=== PATIENT | female | born 1965 | race Caucasian/White ===

== ENCOUNTER 2018-08-28 09:47 | Outpatient (CLI) | payer OTHER, SELFPAY ==
[2018-08-29 10:24] LABS: Hepatitis C Ab w Rflx HCV PCR Negative (NEGAT)
== END 2018-08-28 10:07 ==
PROVIDERS: PCP Family Medicine; Visit Provider Family Medicine
DX: R89.9 Unspecified abnormal finding in specimens from other organs, systems and tissues (principal)
CPT/HCPCS: 36415; 86803

== ENCOUNTER 2018-10-15 11:29 | Outpatient (REF) | payer OTHER, SELFPAY ==
[2018-10-15 22:10] LABS: HGB 15.3 g/dL (12.0-15.5); Mean Corp. HGB Concentration 33.3 g/dL (32.0-36.0); Mean Corpuscular Hemoglobin 29.4 pg (27.0-33.0); Mean Corpuscular Volume 88.5 fL (80-95); Mean Platelet Volume 11.6 fL (8.0-11.0); Platelet Count 177 x1000/uL (130-400); RBC Distribution Width 12.4 % (11.7-14.6); White Blood Cell Count 5.09 k/cumm (4.4-10.8)
[2018-10-15 22:45] LABS: ALT 95 U/L (12-78); AST 42 U/L (15-37); Albumin 3.8 g/dL (3.4-5.0); Alkaline Phosphatase 103 U/L (46-116); Anion Gap 9.5 mmol/L (3-11); BUN 12 mg/dL (7-18); Bilirubin, Total 0.6 mg/dL (0.2-1.0); CO2 27.5 mmol/L (21.0-32.0); CREATININE 0.72 mg/dL (0.55-1.02); Calcium 8.9 mg/dL (8.5-10.1); Chloride 104 mmol/L (98-107); Cholesterol 223 mg/dL (50-200); Glucose 85 mg/dL (70-100); Sodium 141 mmol/L (136-145); TSH (W/Ref FT4) 2.14 uIU/mL (0.36-3.74); Triglyceride 92 mg/dL (30-150)
[2018-10-15 23:07] LABS: Calculated LDL 159 mg/dL; HDL Cholesterol 46 mg/dL (40-60)
== END 2018-10-15 11:49 ==
LOC: NCHCN 11:29
PROVIDERS: PCP Family Medicine; Visit Provider Family Medicine
DX: R10.11 Right upper quadrant pain (principal); R53.83 Other fatigue; Z00.00 Encounter for general adult medical examination without abnormal findings
CPT/HCPCS: 80053; 80061; 83721; 85027; 84443

== ENCOUNTER 2018-10-17 00:41 | Outpatient (CLI) | payer OTHER, SELFPAY ==
--- NOTE | 2018-10-17 08:20 | DI.US_ITS ---
SYMPTOM/DIAGNOSIS: RUQ PAIN, R10.11 ABDOMINAL ULTRASOUND: The aorta and vena cava are unremarkable. Increased echogenicity in the liver is noted consistent with fatty infiltration. Multiple gallstones are noted in the gallbladder. The common duct caliber is 6 mm which is at the top limits of normal in size. The pancreas is unremarkable. The spleen is unremarkable. The kidneys are unremarkable. There is no evidence of free fluid in the pelvis. SUMMARY: A fatty liver is demonstrated in this patient with cholelithiasis. There is no evidence of acute cholecystitis. There is no evidence of biliary obstruction.
== END 2018-10-17 01:01 ==
PROVIDERS: PCP Family Medicine; Visit Provider Family Medicine
DX: R10.11 Right upper quadrant pain (principal); K76.0 Fatty (change of) liver, not elsewhere classified; K80.20 Calculus of gallbladder without cholecystitis without obstruction
CPT/HCPCS: 76700

== ENCOUNTER 2018-11-19 06:12 | Day surgery (SDC) | payer OTHER, SELFPAY ==
[2018-11-19] VITALS (8 sets, daily range): BP systolic 130–168; BP diastolic 83–97; PULSE 58–76; RESP 9–19; TEMP 26.8–36.8; O2SAT 96–98
[2018-11-19] MEDS: Lactated Ringers 1,000 ML 80 ML IV (06:53)
[2018-11-19] MEDS: ceFAZolin 2 GM/50 ML BAG IVPB (07:27)
--- NOTE | 2018-11-19 08:06 | GB_PTH ---
PATIENT: Ariella Farnsworth LOC: [facility] U#:[id number] AGE/SX: 53/F ROOM: RE11/19/[address]: Zuleika Rivera MD : 1965 BED: DIS: 11/19/2018 SPEC #: [id number] RECD: 11/19/18 11:45 STATUS: WANDA VERA #: [id number] YAMILKA: 11/19/18 08:[address]: Zuleika Rivera DEPT: Surgical Specimen RECD BY: Estefania Isidro ENTERED: 11/19/18 11:46 SP TYPE: GB OTHR DR: Jessi Gonzalez V Tissues: 1 - LIVER BIOPSY(NEEDLE/WEDGE) 2 - GALLBLADDER Procedures: SPECIAL STAIN 2 GROSS AND MICRO LEVEL 5 GROSS AND MICRO LEVEL 3 Comments: [id number]
[2018-11-19] MEDS: Bupivacaine 0.5% Pres-Free 30 ML VIAL (08:18)
--- NOTE | 2018-11-19 08:25 | PDOC.DSDIS_ITS ---
Discharge Plan Disposition Patient Disposition: HOME Condition: Good Discharge Details Reason For Visit: Laparoscopic cholecystectomy Attending Provider: Zuleika Rivera Primary Care Provider: Jessi Gonzalez V Home Meds and New Rx's Prescriptions: New hydrocodone-acetaminophen 5-325 mg tablet 1 tab PO Q6H PRN (Reason: pain) Qty: 15 RF: 0 Continued glucosamine sulfate [Glucosamine] 500 mg tablet 500 mg PO DAILY RF: 0 citalopram 10 MG tablet 10 mg PO DAILY RF: 0 Discharge Instructions Additional Instructions: The top bandage can be removed tomorrow. The steri strips will usually stick for about a week. When the edges start to curl up, they can be removed. It is okay to shower tomorrow, the water can run over the steri strips Do not swim or soak in a tub for two weeks Call for any concerns including fever, increased pain, vomiting, incision redness or drainage. Do not lift more than 15 pounds for two weeks. Walking and stairs are fine. Do not drive if on narcotic pain meds or if limited by pain. May use Tylenol alternating with ibuprofen for pain control. Ice is also an option. The maximum dose for Tylenol is 4000 mg/day. May use ibuprofen 800 mg every 8 hours as needed. If concerned about constipation, you may use a stool softener or milk of magnesia. Referrals: Zuleika Rivera MD [ [facility] STAFF PHYSICIAN] - (Return for postop visit in 10-14 days) Activity:: Do not lift more than 15 pounds for two weeks Remove Dressings/Wound Care:: 24 hours Shower/Bathe:: 24 hours Diet:: Low fat for two weeks Discharge Orders Discharge Orders: Discharge Order (Routine); Ordered 11/19/18 Ordered By: Zuleika Rivera DS: Diagnosis Discharge Diagnosis (1) Cholelithiasis: Status: Acute (2) History of laparoscopic cholecystectomy:
[2018-11-19] MEDS: fentaNYL 100 MCG/2 ML VIAL IVP ×2 (08:47→09:03)
[2018-11-19] MEDS: HYDROcodone 5/Acetaminophen 325 TAB PO (10:00)
--- NOTE | 2018-11-19 12:39 | ROE_ITS ---
DATE OF PROCEDURE: November 19, 2018 PREOPERATIVE DIAGNOSIS: Symptomatic cholelithiasis. POSTOPERATIVE DIAGNOSIS: Symptomatic cholelithiasis. PROCEDURE: 1. Laparoscopic cholecystectomy. 2. Liver biopsy. SURGEON: Zuleika Rivera M.D. [employer] MANAGER: Jagdish Black ANESTHESIA: Local and general. INDICATIONS: This is a 53-year-old woman who complains of right upper quadrant pain that radiates to her back. This occurs after a meal and lasts for about two hours. She had an ultrasound that show ed gallstones and fatty liver change. She has a mildly elevated AST and ALT. PROCEDURE: She was placed supine on the operating table and under general anesthetic was prepped and draped sterilely. A 5 mm incision was made to the left of the umbilicus and the abdomen entered und er direct visualization. A CO2 pneumoperitoneum was begun and she was placed in reverse Trendelenbur g position. The epigastric and two lateral ports were placed under direct visualization after inject ing local anesthetic. Her gallbladder did not appear acutely inflamed. It was fairly mobile on a pr ominent mesentery. The liver itself appeared slightly fibrotic. The gallbladder fundus was pulled u p over the liver and the infundibulum retracted laterally. The peritoneum overlying the triangle of Calot was dissected free with hook cautery to expose the cystic duct and artery. These were both vis ualized going directly onto the gallbladder. The duct was palpated with no stones felt within it. T he cystic duct was not dilated. The common bile duct was visualized and carefully avoided. The cyst ic duct was clipped twice distally and once proximally and divided. The artery was clipped twice pro ximally and once distally and divided. The gallbladder was then dissected off the liver bed with tobias k cautery with a few vessels within the gallbladder fossa being clipped. Once the gallbladder was re moved, I removed a small portion of the edge of the liver near the gallbladder fossa for a biopsy, gi chacha her LFT changes. The biopsy site was cauterized with good hemostasis. Inspection of the operati ve site revealed no bleeding or bile leak. The gallbladder was placed in an Endo-Catch bag and remov ed through the epigastric incision. There were several moderate-sized gallstones which required that the incision be extended slightly. The ports were removed with no evidence of bleeding and the CO2 released. The fascia at the epigastric incision was closed with a [id number] #0 Vicryl stitch a nd then the skin at all port sites closed with a running #4-0 Monocryl subcuticular stitch. She tole rated the procedure well and was stable to recovery. cc: Jessi Gonzalez M.D.
== END 2018-11-19 11:02 | disposition home or self-care (01) ==
PROVIDERS: PCP Family Medicine; Visit Provider Surgery
PROC: 0FT44ZZ Resection of Gallbladder, Percutaneous Endoscopic Approach (ICD-10-PCS; CPT 47562; principal; 2018-11-19 07:30)
DX: K80.12 Calculus of gallbladder with acute and chronic cholecystitis without obstruction (principal); K76.0 Fatty (change of) liver, not elsewhere classified; I10 Essential (primary) hypertension; F32.9 Major depressive disorder, single episode, unspecified
CPT/HCPCS: 49321; 47562; 88304; 88307; 88313; J0690; J1100; J1885; J2250; J2405; J3010

== ENCOUNTER 2018-12-30 07:43 | Outpatient (CLI) | payer OTHER, SELFPAY ==
[2018-12-30 08:29] LABS: Absolute Basophil Count 0.04 k/cumm (0.0-0.2); Absolute Eosinophil Count 0.19 k/cumm (0.0-0.7); Absolute Lymphocyte Count 2.07 k/cumm (1.2-3.4); Absolute Monocyte Count 0.36 k/cumm (0.11-0.7); Absolute Neutrophil Count 3.47 k/cumm (1.2-6.7); Basophils % 0.7; Eosinophils % 3.1; HCT 41.9 % (36.0-46.0); HGB 14.2 g/dL (12.0-15.5); Lymphocytes % 33.8; Mean Corp. HGB Concentration 33.9 g/dL (32.0-36.0); Mean Corpuscular Hemoglobin 30.1 pg (27.0-33.0); Mean Platelet Volume 10.2 fL (8.0-11.0); Monocytes % 5.9; Neutrophils % 56.5; Platelet Count 191 x1000/uL (130-400); RBC 4.71 m/cumm (4.00-5.20); RBC Distribution Width 13.2 % (11.7-14.6); White Blood Cell Count 6.13 k/cumm (4.4-10.8)
[2018-12-30 09:18] LABS: Iron 121 ug/dL (50-175); Total Iron Binding Capacity 278 ug/dL (250-450); Transferrin Sat 44 % (15-50)
[2018-12-30 09:30] LABS: ALT 38 U/L (14-59); AST 25 U/L (15-37); Albumin 3.6 g/dL (3.4-5.0); Alkaline Phosphatase 111 U/L (46-116); Anion Gap 6.8 mmol/L (3-11); BUN 16 mg/dL (7-18); Bilirubin, Total 0.8 mg/dL (0.2-1.0); CO2 33.2 mmol/L (21.0-32.0); CREATININE 0.78 mg/dL (0.55-1.02); Calcium 8.9 mg/dL (8.5-10.1); Chloride 104 mmol/L (98-107); Ferritin 71 ng/mL (8-388); Glucose 100 mg/dL (70-100); Potassium 4.3 mmol/L (3.5-5.1); Sodium 144 mmol/L (136-145); Total Protein 7.1 g/dL (6.4-8.2)
[2018-12-31 09:21] LABS: IgG 1206 mg/dL (610-1616); IgM 142 mg/dL (35-242)
[2018-12-31 10:27] LABS: HBs Antibody, Quant <3.1 mIU/mL; Hepatitis B Surface Ab Negative
[2018-12-31 10:32] LABS: Hep A Total Ab w Rflx IgM Negative (NEGAT); Hepatitis C Ab w Rflx HCV PCR Negative (NEGAT)
[2018-12-31 11:13] LABS: Hepatitis Be Antigen Negative (Negative)
[2018-12-31 13:43] LABS: ANA Interpretation Positive (NEGAT); ANA Titer Pattern SEE COMMENTS
[2018-12-31 16:59] LABS: Smooth Muscle Ab Screen Negative (Negative)
[2019-01-01 15:40] LABS: Mitochondrial Ab, M2 <0.1 U
== END 2018-12-30 08:03 ==
PROVIDERS: PCP Family Medicine; Visit Provider Physician Assistant Medical
DX: K76.0 Fatty (change of) liver, not elsewhere classified (principal); R94.5 Abnormal results of liver function studies
CPT/HCPCS: 36415; 80053; 82784; 83516; 86706; 86709; 86803; 82728; 83540; 83550; 85025; 86038; 86255; 86704; 87350

== ENCOUNTER 2019-01-17 11:25 | Outpatient (REF) | payer OTHER, SELFPAY ==
--- NOTE | 2019-01-17 11:15 | PAPFT_PTH ---
PATIENT: Ariella Farnsworth LOC: [facility] U#:[id number] AGE/SX: 53/F ROOM: RE01/17/[address]: GRIFFIN Garcia : 1965 BED: DIS: 01/17/2019 SPEC #: [id number] RECD: 01/17/19 13:06 STATUS: WANDA VERA #: [id number] YAMILKA: 01/17/19 11:[address]: Lina Gamboa DEPT: [facility] Cytology RECD BY: Estefania Isidro ENTERED: 01/17/19 13:07 SP TYPE: PAPFT OTHR DR: Jessi Gonzalez V Tissues: 1 - CX/ENDOCX FOR PAP SMEARS Procedures: PAP THIN PREP/UVM Screening HPV DNA PROBE Comments: [id number]
== END 2019-01-17 11:45 ==
LOC: LBN 11:25
PROVIDERS: PCP Family Medicine; Visit Provider Nurse Practitioner Family
DX: Z12.4 Encounter for screening for malignant neoplasm of cervix (principal); Z11.51 Encounter for screening for human papillomavirus (HPV)
CPT/HCPCS: 88142; 87624

== ENCOUNTER 2019-02-03 01:20 | Outpatient (CLI) | payer OTHER, SELFPAY ==
--- NOTE | 2019-02-03 09:50 | DI.MAMMO_ITS ---
EXAM: MG MAMMO SCREENING CLINICAL HISTORY: screening, Z12.39 TECHNIQUE: Mammograms were interpreted according to the usual protocol including computer analysis w Factor 14 CAD system, tomosynthesis and C-view imaging. COMPARISON: [id number] FINDINGS: The breasts are composed of heterogeneously dense tissue, which may obscure small masses, breast dens ity category C. There are no dominant masses or microcalcifications. There has been no significant i nterval change when compared with the prior images. IMPRESSION: Category 1, negative mammogram. Yearly screening mammography is recommended. BI-RADS Cat 1 - Negative Breast Density - Category C - Heterogeneously dense
== END 2019-02-03 01:40 ==
PROVIDERS: PCP Family Medicine; Visit Provider Nurse Practitioner Family
DX: Z12.31 Encounter for screening mammogram for malignant neoplasm of breast (principal)
CPT/HCPCS: 77063; 77067

== ENCOUNTER 2019-10-31 12:42 | Outpatient (REF) | payer OTHER, SELFPAY ==
[2019-10-31 15:20] LABS: Bilirubin Negative (Negative); Blood Trace-intact (Negative); Clarity Clear (Clear); Glucose Negative (Negative); Ketones Negative (Negative); Leukocyte Esterase Trace (Negative); Nitrite Negative (Negative); Specific Gravity >= 1.030 (1.005-1.025); Urobilinogen 0.2 EU/dL (Up TO 0.2); pH 6.5 (5-8)
[2019-10-31 15:30] LABS: Bacteria Few HPF (Negative); Epithelial Cells Few HPF (Negative); Other Cells Few Renal (Negative); WBC >50 HPF (0-5)
[2019-10-31 15:31] LABS: C & S Indicated? Yes; Casts Negative LPF (Negative); Crystals Negative HPF (Negative); Mucus Trace (Negative)
== END 2019-10-31 13:02 ==
LOC: LBN 12:42
PROVIDERS: PCP Family Medicine; Visit Provider Obstetrics & Gynecology
DX: R30.0 Dysuria (principal)
CPT/HCPCS: 87077; 81003; 81015; 87086; 87186

== ENCOUNTER 2019-12-09 13:17 | Outpatient (CLI) | payer OTHER, SELFPAY ==
--- NOTE | 2019-12-09 13:00 | DI.RAD_ITS ---
EXAM: XR SHOULDER RT COMPLETE 2+V CLINICAL HISTORY: SHOULDER PAIN. TECHNIQUE: 2D digital imaging was performed. COMPARISON: No exams were available for comparison FINDINGS: BONES: No acute fracture is present. No bony destructive lesion is seen. JOINTS: Mild degenerative changes are seen at the acromioclavicular joint. The glenohumeral joint is well maintained. SOFT TISSUE: Normal. IMPRESSION: Mild degenerative changes of the right shoulder. DATA REPOSITORY: RADIATION DOSE DELIVERED:
== END 2019-12-09 13:37 ==
PROVIDERS: PCP Family Medicine; Referring Provider Family Medicine; Visit Provider Student in an Organized Health Care Education/Training Program
DX: M19.011 Primary osteoarthritis, right shoulder (principal)
CPT/HCPCS: 73030

== ENCOUNTER 2020-12-21 01:06 | Outpatient (CLI) | payer OTHER, SELFPAY ==
--- NOTE | 2020-12-21 08:15 | DI.MAMMO_ITS ---
Exam(s) MAMMO SCREENING EXAM: MAMMO SCREENING CLINICAL HISTORY: screening,Z12.39 TECHNIQUE: Bilateral full field digital CC and MLO mammographic images were obtained with 3D tomosyn thesis and utilizing computer aided detection (CAD). COMPARISON: Available for comparison. FINDINGS: Masses/Architectural Distortion: None seen. Microcalcifications: No suspicious pleomorphic-type are seen. Skin Thickening/Nipple Retraction: None. IMPRESSION: 1. No significant interval change with no specific features of malignancy noted. 2. Unless there is more urgent need, screening mammography is recommended, as per [employer] [employer] guidelines. BI-RADS Category 1 - Negative Breast Density - Category C - Heterogeneously dense Breast density category C or D implies that the patient has dense breast tissue. Dense breast tissue is very common and is not abnormal but dense breast tissue can make it harder to find cancer on a ma mmogram. Also, dense breast tissue may increase their breast cancer risk. This information about the result of the mammogram report was provided to the patient to raise their awareness. Use this report when you speak with the patient about their risks for breast cancer, which includes their family hist ory. At that time, you may recommend for more screening tests (Ultrasound or MRI) as they might be us eful based on their risk. A negative radiographic report should not delay biopsy if a dominant or clinically suspicious mass is present. Up to ten percent of cancers are not identified on mammography. A negative report may reinforce clinical impression. Adenosis and dense breasts may obscure an underlying neoplasm. False positive reports average 6 to 10%. Patient will receive a letter notifying them of these results.
== END 2020-12-21 01:26 ==
PROVIDERS: PCP Family Medicine; Visit Provider Nurse Practitioner Family
DX: Z12.31 Encounter for screening mammogram for malignant neoplasm of breast (principal); R92.8 Other abnormal and inconclusive findings on diagnostic imaging of breast
CPT/HCPCS: 77063; 77067

== ENCOUNTER 2020-12-23 13:55 | Outpatient (REF) | payer OTHER, SELFPAY ==
[2020-12-23 19:30] LABS: Calculated LDL 151 mg/dL (<100); Cholesterol 223 mg/dL (<200); Glucose 93 mg/dL (74-106); HDL Cholesterol 50 mg/dL (40-60); TSH (W/Ref FT4) 2.43 uIU/mL (0.36-3.74); Triglyceride 112 mg/dL (<150)
== END 2020-12-23 13:56 | disposition home or self-care (01) ==
LOC: NCHCN 13:55
PROVIDERS: PCP Family Medicine; Visit Provider Family Medicine
DX: Z00.00 Encounter for general adult medical examination without abnormal findings (principal)
CPT/HCPCS: 80061; 82947; 84443

== ENCOUNTER 2021-12-19 13:44 | Outpatient (REF) | payer OTHER, SELFPAY ==
--- NOTE | 2021-12-19 10:20 | PAPFT_PTH ---
PATIENT: Ariella Farnsworth LOC: [facility] U#:[id number] AGE/SX: 56/F ROOM: RE12/19/[address]: Liliane Phillip NP : 1965 BED: DIS: 12/19/2021 SPEC #: [id number] RECD: 12/19/21 18:26 STATUS: WANDA REQ #: [id number] YAMILKA: 12/19/21 10:[address]: Liliane Phillip NP DEPT: [facility] Cytology RECD BY: Leilani Estrella ENTERED: 12/19/21 18:26 SP TYPE: PAPFT OTHR DR: Carina Nieto, DO Tissues: 1 - CX/ENDOCX FOR PAP SMEARS Procedures: PAP THIN PREP/UVM Screening HPV DNA PROBE Comments: [id number]
== END 2021-12-19 13:45 | disposition home or self-care (01) ==
LOC: LBN 13:44
PROVIDERS: PCP Student in an Organized Health Care Education/Training Program; Visit Provider Nurse Practitioner Women's Health
DX: Z12.4 Encounter for screening for malignant neoplasm of cervix (principal); Z11.51 Encounter for screening for human papillomavirus (HPV)
CPT/HCPCS: 88142; 87624

== ENCOUNTER → 2022-01-03 02:43 | Outpatient (CLI) | payer OTHER, SELFPAY ==
--- NOTE | 2022-01-03 06:15 | DI.MAMMO_ITS ---
Exam(s) MAMMO SCREENING EXAM: MAMMO SCREENING CLINICAL HISTORY: screening,12.39 TECHNIQUE: Bilateral full field digital CC and MLO mammographic images were obtained with 3D tomosyn thesis and utilizing computer aided detection (CAD). COMPARISON: Available for comparison. FINDINGS: Masses/Architectural Distortion: There is a stable nodule in the inferomedial left breast. No suspic ious nodules or areas of architectural distortion are identified. Microcalcifications: No suspicious pleomorphic-type are seen. Skin Thickening/Nipple Retraction: None. IMPRESSION: 1. No significant interval change with no specific features of malignancy noted. 2. Unless there is more urgent need, screening mammography is recommended, as per [employer] guidelines. BI-RADS Category 1 - Negative Breast Density - Category B - Scattered areas of fibroglandular density Breast density category C or D implies that the patient has dense breast tissue. Dense breast tissue is very common and is not abnormal but dense breast tissue can make it harder to find cancer on a ma mmogram. Also, dense breast tissue may increase their breast cancer risk. This information about the result of the mammogram report was provided to the patient to raise their awareness. Use this report when you speak with the patient about their risks for breast cancer, which includes their family hist ory. At that time, you may recommend for more screening tests (Ultrasound or MRI) as they might be us eful based on their risk. A negative radiographic report should not delay biopsy if a dominant or clinically suspicious mass is present. Up to ten percent of cancers are not identified on mammography. A negative report may reinforce clinical impression. Adenosis and dense breasts may obscure an underlying neoplasm. False positive reports average 6 to 10%. Patient will receive a letter notifying them of these results.
== END ==
PROVIDERS: PCP Student in an Organized Health Care Education/Training Program; Visit Provider Student in an Organized Health Care Education/Training Program
DX: Z12.31 Encounter for screening mammogram for malignant neoplasm of breast (principal)
CPT/HCPCS: 77063; 77067

== ENCOUNTER → 2023-04-04 01:39 | Outpatient (CLI) | payer OTHER, SELFPAY ==
--- NOTE | 2023-04-04 07:30 | DI.MAMMO_ITS ---
Exam(s) MAMMO SCREENING EXAM: MAMMO SCREENING CLINICAL HISTORY: screening,Z12.39. TECHNIQUE: Bilateral full field digital CC and MLO mammographic images were obtained with 3D tomosyn thesis and utilizing computer aided detection (CAD). COMPARISON: Prior mammograms were reviewed. FINDINGS: There has been no significant change in the appearance and distribution of the fibroglandular tissue. No new right breast findings. In the left breast a small benign-appearing nodule medially is unchanged from prior mammograms. Horton jovanni, more centrally at the 6 o'clock position there is a new nodular density measuring 5 x 4 mm locat ed 3 cm in from the nipple on the CC view. Additional imaging required. There are no malignant-appearing microcalcification groups in either breast. There is no significant architectural distortion nor skin thickening-retraction. IMPRESSION: 1. No radiographic evidence of malignancy in the right breast. 2. New asymmetric density-possible nodule in the left breast as described above. Spot compression CC view and ultrasound recommended. BI-RADS Category 0 - Assessment Incomplete: Need additional imaging evaluation Breast Density - Category B - Scattered areas of fibroglandular density Breast density Category C or D implies that the patient has dense breast tissue. Dense breast tissue can make it harder to find cancer on a mammogram. Dense breast tissue is also associated with an incr eased risk of breast cancer. This information about the result of the mammogram report was provided to the patient to raise their awareness. Use this report when you speak with the patient about their risks for breast cancer, which includes their family history. At that time, you may recommend additional screening tests (Ultrasoun d or MRI) as these tests may add significant information. A negative radiographic report should not delay biopsy if a dominant or clinically suspicious mass is present. Up to ten percent of cancers are not identified on mammography. A negative report may reinforce clinical impression. Adenosis and dense breasts may obscure an underlying neoplasm. False positive reports average 6 to 10%. Patient will receive a letter notifying them of these results.
== END ==
PROVIDERS: PCP Student in an Organized Health Care Education/Training Program; Visit Provider Student in an Organized Health Care Education/Training Program
DX: Z12.31 Encounter for screening mammogram for malignant neoplasm of breast (principal)
CPT/HCPCS: 77063; 77067

== ENCOUNTER → 2023-04-11 01:02 | Outpatient (CLI) | payer OTHER, SELFPAY ==
--- NOTE | 2023-04-11 | DI.MAMMO_ITS ---
Exam(s) MG MAMMO SCREEN CALL BACK UNI US BREAST LT COMPLETE EXAM: MAMMO SCREEN CALL BACK UNI CLINICAL HISTORY: F/U MAMMO, R92.8,ASYMMETRIC DENSITY, ? NODULE. TECHNIQUE: Craniocaudal spot compression digital Mammography views of the left breast with Tomosynt hesis and left breast ultrasound. COMPARISON: 2016 through the recent exam of 04 April 2023 FINDINGS: Mammography/Tomosynthesis: Masses/Architectural Distortion: No suspicious masses seen. Small persistent area of circumscribed nodularity. Microcalcifictions: No suspicious pleomorphic-type are seen. Skin Thickening/Nipple Retraction: None. Left breast US: Echotexture: Normal appearance of the glandular tissue. Shadowing: No suspicious foci. Cyst: 3.6 x 5.6 x 3.6 millimeter cyst 4 o'clock position Solid lesions: None seen. Ductal dilation: None. IMPRESSION: 1. No evidence of malignancy is noted. 2. Unless there is more urgent need, follow-up screening mammography is recommended, as per [employer] guidelines. 3. The findings were discussed with the patient on the date of the examination. BI-RADS Category 1 - Negative Breast Density - Category B - Scattered areas of fibroglandular density A negative radiographic report should not delay biopsy if a dominant or clinically suspicious mass is present. Up to ten percent of cancers are not identified on mammography. A negative report may reinforce clinical impression. Adenosis and dense breasts may obscure an underlying neoplasm. False positive reports average 6 to 10%. Patient will receive a letter notifying them of these results.
== END ==
PROVIDERS: PCP Student in an Organized Health Care Education/Training Program; Visit Provider Student in an Organized Health Care Education/Training Program
DX: N60.22 Fibroadenosis of left breast (principal)
CPT/HCPCS: 76642; 77063; 77067

== ENCOUNTER 2024-02-28 03:25 | Outpatient (CLI) | payer OTHER, SELFPAY ==
[2024-02-28 13:07] LABS: HCT 43.8 % (36.0-46.0); HGB 15.1 g/dL (11.2-15.7); MCH 30.8 pg (27.0-33.0); MCHC 34.5 % (32.0-36.0); MCV 89 fL (80-95); MPV 10.5 fL (8.0-11.0); Platelet Count 191 10^3/uL (130-400); RDW 11.6 % (11.7-14.6); RDW-SD 37.4 fL; WBC 8.29 10^3/uL (4.4-10.8)
[2024-02-28 14:35] LABS: ALT 25 U/L (14-59); AST 18 U/L (15-37); Albumin 3.8 g/dL (3.4-5.0); Alkaline Phosphatase 91 U/L (46-116); Anion Gap 7.1 mmol/L (3-11); BUN 13 mg/dL (7-18); CO2 31.9 mmol/L (21.0-32.0); CREATININE 0.8 mg/dL (0.55-1.02); Calcium 9.2 mg/dL (8.5-10.1); Calculated LDL 160 mg/dL (<100); Chloride 105 mmol/L (98-107); Cholesterol 243 mg/dL (<200); Glucose 89 mg/dL (74-106); HDL Cholesterol 56 mg/dL (40-60); Magnesium 2.1 mg/dL (1.8-2.4); Potassium 3.6 mmol/L (3.5-5.1); Sodium 144 mmol/L (136-145); Total Protein 7.2 g/dL (6.4-8.2); Triglyceride 136 mg/dL (<150); Vitamin B12 796 pg/mL (193-986); Vitamin D 25 Total 24.4 ng/mL (30-100)
== END 2024-02-28 03:26 | disposition home or self-care (01) ==
LOC: LBO 03:25
PROVIDERS: PCP Student in an Organized Health Care Education/Training Program; Visit Provider Student in an Organized Health Care Education/Training Program
DX: Z13.220 Encounter for screening for lipoid disorders (principal); Z13.9 Encounter for screening, unspecified; E16.2 Hypoglycemia, unspecified; Z87.898 Personal history of other specified conditions; K90.9 Intestinal malabsorption, unspecified
CPT/HCPCS: 36415; 80053; 80061; 82306; 85027; 82607; 82746; 83735

== ENCOUNTER 2025-03-04 00:51 | Outpatient (CLI) | payer OTHER, SELFPAY ==
[2025-03-04 08:06] LABS: Hemoglobin A1C 5.1 % (<5.7)
[2025-03-04 08:07] LABS: Cholesterol 224 mg/dL (<200); HDL Cholesterol 52 mg/dL (>40)
[2025-03-04 08:11] LABS: TSH (W/Ref FT4) 2.20 uIU/mL (0.55-4.78)
== END 2025-03-04 00:52 | disposition home or self-care (01) ==
PROVIDERS: PCP Nurse Practitioner Family; Referring Provider Nurse Practitioner Family; Visit Provider Nurse Practitioner Family
DX: Z00.00 Encounter for general adult medical examination without abnormal findings (principal); Z83.49 Family history of other endocrine, nutritional and metabolic diseases
CPT/HCPCS: 36415; 80061; 83036; 84443

== ENCOUNTER → 2025-03-17 15:36 | Outpatient (CLI) | payer OTHER, SELFPAY ==
--- NOTE | 2025-03-17 16:08 | DI.MAMMO_ITS ---
Exam(s) MAMMO SCREENING EXAM: MAMMO SCREENING CLINICAL HISTORY: screening Z12.31 TECHNIQUE: Mammograms were interpreted according to the usual protocol including computer analysis with CAD system, tomosynthesis and C-view imaging. COMPARISON: 2015 through 2023 FINDINGS: The breasts are composed of scattered fibroglandular densities, Breast Density category B. No suspicious masses or suspicious microcalcifications are seen. No skin thickening or abnormal axillary lymph nodes are seen. There has been no significant change from prior exams. IMPRESSION: BI-RADS Category 1, Negative mammogram Yearly screening mammography is recommended. Breast Density - Category B - There are scattered areas of fibroglandular density. Breast density Category C or D implies that the patient has dense breast tissue. Dense breast tissue can make it harder to find cancer on a mammogram. Dense breast tissue is also associated with an increased risk of breast cancer. This information about the result of the mammogram report was provided to the patient to raise their awareness. Use this report when you speak with the patient about their risks for breast cancer, which includes their family history. At that time, you may recommend additional screening tests (Ultrasound or MRI) as these tests may add significant information. A negative radiographic report should not delay biopsy if a dominant or clinically suspicious mass is present. Up to ten percent of cancers are not identified on mammography. A negative report may reinforce clinical impression. Adenosis and dense breasts may obscure an underlying neoplasm. False positive reports average 6 to 10%. Patient will receive a letter notifying them of these results.
== END ==
LOC: DI 15:36
PROVIDERS: PCP Nurse Practitioner Family; Visit Provider Nurse Practitioner Family
DX: Z12.31 Encounter for screening mammogram for malignant neoplasm of breast (principal); R92.323 Mammographic fibroglandular density, bilateral breasts
CPT/HCPCS: 77063; 77067